=== PATIENT | female | born 1955 | race Caucasian/White ===

== ENCOUNTER 2017-01-10 23:33 | Emergency (ER) | payer MEDICAID, OTHER ==
[~2017-01-10 23:33] MED LIST: IBUP-232 PO; LORT5TAB PO; Z.0.NO CURRENT MEDS
[2017-01-10 23:37] VITALS: BP 184/88; PULSE 67; RESP 18; TEMP 98.4; O2SAT 97
[2017-01-11] MEDS ORDERED: IBUP-232 PO (02:42)
--- NOTE | 2017-01-11 02:43 | RADRPT ---
EXAM DATE/TIME: 01/11/2017 01:54 [place] COMPARISON: No previous studies available for comparison. INDICATIONS : Left rib pain. MEDICAL HISTORY : Hypertension. [place]. SURGICAL HISTORY : None. ENCOUNTER: Initial ACUITY: 4 - 6 days PAIN SCORE: 10/10 LOCATION: Left ribs, anterior and inferior FINDINGS: Multiple views of the left ribs were performed. There is no evidence of displaced fracture. No dest ructive lesions or areas of periosteal thickening are seen. Expiratory view of the chest is negative for pneumothorax. The mediastinal structures are midline. Heart is mildly enlarged. Calcified gall stones in the right upper quadrant of the abdomen. CONCLUSION: 1. Ribs within normal limits. 2. Calcified gallstones. 3. Mild cardiac silhouette enlargement. Pierre Bhardwaj MD on January 11, 2017 at 2:40 Board Certified Radiologist. This report was verified electronically.
[2017-01-11] MEDS ORDERED: KETOROLAC TROMETHAMINE 60 MG/2 ML (IM) VIAL IM ONE (03:15)
--- NOTE | 2017-01-11 03:21 | PD ---
HPI Chief Complaint: Musculoskeletal Complaint Time Seen by Provider: 01:49 Travel History International Travel<30 days: No Contact w/Intl Traveler<30days: No Traveled to known affect area: No History of Present Illness HPI The patient is a 61-year-old female who complains of sharp left rib pain for 4 days. She denies any trauma. She does not smoke and she does not drink. She denies any fever or hemoptysis. She does not have a cough. PFS Past Medical History Diminished Hearing: No Hypertension: Yes Tetanus Vaccination: < 5 Years ?: Not Menopausal: Yes Tubal Ligation: Yes Past Surgical History Surgical History: No Previous Surgery Social History Alcohol Use: No Tobacco Use: No (Quit 12/14) Substance Use: No Allergies-Medications (Allergen,Severity, Reaction): Coded Allergies: No Known Allergies (Verified , 06/12/06) Reported Meds & Prescriptions Reported Meds & Active Scripts Active Ibuprofen 600 Mg Tab 600 Mg PO TID Review of Systems Except as stated in HPI: all other systems reviewed are Neg Physical Exam Narrative GENERAL: The patient is alert, oriented 3 in minimal apparent distress with her left rib pain. Her vital signs show blood pressure 184/88 but are otherwise normal. SKIN: Focused skin assessment warm/dry. HEAD: Atraumatic. Normocephalic. EYES: Pupils equal and round. No scleral icterus. No injection or drainage. ENT: No nasal bleeding or discharge. Mucous membranes pink and moist. NECK: Trachea midline. No JVD. CARDIOVASCULAR: Regular rate and rhythm. No murmur appreciated. RESPIRATORY: No accessory muscle use. Clear to auscultation. Breath sounds equal bilaterally. There is exquisite tenderness over the left ribs that completely reproduces the patient's pain. There is no associated flail. GASTROINTESTINAL: Abdomen soft, non-tender, nondistended. Hepatic and splenic margins not palpable. MUSCULOSKELETAL: No obvious deformities. No clubbing. No cyanosis. No edema. NEUROLOGICAL: Awake and alert. No obvious cranial nerve deficits. Motor grossly within normal limits. Normal speech. PSYCHIATRIC: Appropriate mood and affect; insight and judgment normal. Data Data Last Documented VS Vital Signs Date Time Temp Pulse Resp B/P (MAP) Pulse Ox O2 Delivery O2 Flow Rate FiO2 01/10/17 23:55 (120) 01/10/17 23:37 98.4 67 18 97 Orders Orders Ribs, Uni (W/Exp Cxr-Min 3vw) (01/11/17 ) Ketorolac Inj (Toradol Inj) (01/11/17 03:15) [facility] Medical Decision Making Medical Screen Exam Complete: Yes Emergency Medical Condition: Yes Medical Record Reviewed: Yes Differential Diagnosis Rib fracture, rib tumor, pneumonia, pleuritic pain, rib pain etiology undetermined Narrative Course The patient has rib pain etiology undetermined. She will be given Motrin 600 mg 3 times a day. I cannot find any definite reason for her rib pain on the x- ray or by history. She has not had a cough lately. Diagnosis Primary Impression: Rib pain on left side Referrals: NO PRIMARY CARE PHYSICIAN (PCP) call for appointment Patient Instructions: General Instructions Departure Forms: Tests/Procedures Additional Instructions: Take the Motrin regularly, 1 tablet 3 times daily. When you do this he will achieve high anti-inflammatory levels and this usually causes the pain to go away. Cough and deep breathe because this is how the lungs clean themselves out. Failure to do this may cause a pneumonia. Scripts Ibuprofen (Ibuprofen) 600 Mg Tab 600 MG PO TID, #33 TAB 0 Refills Prov: Tavo Clemons MD 01/11/17 Disposition: 01 DISCHARGE HOME Condition: Stable Tavo Clemons MD Jan 11, 2017 03:21
[2017-01-11 03:26] VITALS: BP 194/100
== END 2017-01-11 03:30 | disposition home or self-care (01) ==
LOC: PHED 23:33
DX: R07.81 Pleurodynia (principal)
CPT/HCPCS: 71101; 96372; 99284; J1885